=== PATIENT | female | born 1990 | race African-American/Black ===

== ENCOUNTER 2016-06-24 07:55 | Emergency (ER) | payer BC, OTHER ==
[2016-06-24 08:16] LABS: Blood, Urine Moderate (Negative); Glucose, Urine (Dipstick) Negative (Negative); Ketone, Urine Negative (Negative); Nitrite Negative (Negative); Protein, Urine (Dipstick) Negative (Neg-Trace); Urobilinogen 0.2 mg/dL (0.2-1.0)
[2016-06-24 08:22] LABS: Bilirubin Negative (Negative)
[2016-06-24 08:25] LABS: Bacteria/HPF 1+ HPF (None Seen); WBC/HPF 0-3 HPF (0-3)
[2016-06-24 08:57] LABS: Sexual Assault Suspected No; Wet Prep Budding Yeast BudYeas/Hyph Absent (None Seen); Wet Prep Clue Cells Clue Cells Absent (None Seen); Wet Prep Source Vaginal; Wet Prep Spermatozoa Spermatozoa Absent (None Seen); Wet Prep Spermatozoa 2nd Revie Agree with result (None Seen)
[2016-06-24] MEDS ORDERED: cefTRIAXone\\ROCEPHIN 250 MG VIAL ONE (09:09)
[2016-06-24] MEDS ORDERED: Lidocaine 1% PF 5 ML VIAL ONE (09:09)
[2016-06-24] MEDS ORDERED: Azithromycin 250 MG TAB ONE (09:09)
--- NOTE | 2016-06-24 09:44 | ERRECORD ---
[facility] EMERGENCY RECORD HPI VAGINAL DISCHARGE (08:29 MPUR) CHIEF COMPLAINT: Patient presents for evaluation of vaginal discharge, Patient presents for evaluation of vaginal itching. HISTORIAN: History provided by patient, 2 day hx of discharge, burning, and irritation. Used Monistat last night but sx continue. No frequency. Is on control. LOCATION: Symptoms are localized, most severe in the vagina. TIME COURSE: Gradual onset of symptoms, There has been no change in the patient's symptoms over time. ASSOCIATED WITH: No associated symptoms. EXACERBATED BY: Patient's condition exacerbated by nothing. RELIEVED BY: Patient's condition relieved by nothing. ROS (08:32 MPUR) CONSTITUTIONAL: Historian denies fever. EYES: Historian denies eye pain. ENT: Historian denies rhinorrhea. CARDIOVASCULAR: Historian denies chest pain. RESPIRATORY: Historian denies cough. GI: Historian denies diarrhea, Historian denies vomiting. MUSCULOSKELETAL: Historian denies arthralgias. SKIN: Historian denies rash. NEUROLOGIC: Historian denies seizures. ENDOCRINE: Historian denies skin changes. HEMO/LYMPHATIC: Historian denies easy bruising. PAST MEDICAL HISTORY (08:02 EPIE) MEDICAL HISTORY: No past medical history. No past medical history, Flu vaccine not up to date, Tetanus not up to date, Pneumococcal vaccine not up to date. FEMALE SURGICAL HISTORY: Patient has no surgical history. PSYCHIATRIC HISTORY: Psychiatric history includes, anxiety. SOCIAL HISTORY: Patient drinks socially, rarely, , Patient denies drug use, Patient has no smoking history. KNOWN ALLERGIES No Known Drug Allergies CURRENT MEDICATIONS (08:01 EPIE) None VITAL SIGNS VITAL SIGNS: BP: 122/75, Pulse: 94, Resp: 18 (Non-Labored), Temp: 97.0 (Oral), Pain: 6, O2 sat: 97 on Room Air, Time: 06/24/2016 07:59. (07:59 EPIE) BP: 109/73, Pulse: 89, Resp: 18, Temp: 97.4 ORAL, Pain: 5, O2 sat: 98 on &a-1R&a+25V*p+0X*q9169G*c202B*c15G*c2P*p-0X&a-25V&a+1R Name: Joe Lacy : 1990 F25 MedRec: [id number] AcctNum: [id number] Prepared: ThuJun 24, 2016 18:40 by Interface Page 1 of 3 pMD [facility] EMERGENCY RECORD ra, Time: 06/24/2016 09:34. (09:34 EPIE) PHYSICAL EXAM CONSTITUTIONAL: Vital signs reviewed, Patient appears non toxic. (08:32 MPUR) HEAD: Head exam included findings of head atraumatic, normocephalic. (08:32 MPUR) EYES: Eye exam included findings of eyelids normal to inspection, Conjunctiva normal, Sclera normal. (08:32 MPUR) ENT: Nose exam normal, no nasal deformity, mucous membranes moist. (08:32 MPUR) NECK: Neck exam included findings of normal range of motion, no ecchymosis. (08:32 MPUR) RESPIRATORY CHEST: Respiratory exam included findings of no respiratory distress, NL Respiratory rate and no increased work of breathing. (08:32 MPUR) ABDOMEN FEMALE: Abdominal exam included findings of abdomen nontender, no distension, Mass palpated, no pulsatile masses, no peritoneal signs, slight suprapubic tenderness. (08:33 MPUR) GENITOURINARY FEMALE: Genitourinary exam included findings of external genitalia abnormal, inflamed, no ulcers noted., vaginal mucosa abnormal, mild inflammation. (09:03 MPUR) PELVIC: Speculum exam abnormal, bloody discharge present, Bimanual exam normal, Urethral exam normal, Bladder exam normal, Escorted by Chloe Mae. (09:08 MPUR) LOWER EXTREMITY: Lower extremity exam included findings of inspection normal, no cyanosis. (08:32 MPUR) NEURO: Speech normal, alert. (08:32 MPUR) SKIN: dry, and normal in color, no rash. (08:32 MPUR) PSYCHIATRIC: Normal affect, Recent memory normal. (08:32 MPUR) MEDICATION ADMINISTRATION SUMMARY Drug Name: azithromycin oral, Dose Ordered: 1000 mg, Route: Oral, Status: Given, Time: 09:18 06/24/2016, Drug Name: cefTRIAXone injection, Dose Ordered: 250 mg, Route: Intramuscular, Status: Given, Time: 09:16 06/24/2016, Detailed record available in Medication Service section. DOCTOR NOTES TEXT: Pt. would like treatment now., I have reviewed and agree with nurse's past medical, family, and social history as documented on chart. Pt's vital signs have been reviewed. (08:32 MPUR) initial labs neg. Discussed with pt awaiting for further results but she wanted tx now. (18:36 MPUR) &a-1R&a+25V*p+0X*m2181S*c202B*c15G*c2P*p-0X&a-25V&a+1R Name: Joe Lacy : 1990 F25 MedRec: [id number] AcctNum: [id number] Prepared: ThuJun 24, 2016 18:40 by Interface Page 2 of 3 pMD [facility] EMERGENCY RECORD PROBLEM LIST No recorded problems DIAGNOSIS (09:13 MPUR) FINAL: PRIMARY: Acute vaginitis. PRESCRIPTION No recorded prescriptions DISPOSITION PATIENT: Disposition Type: Discharge, Disposition: *Discharge Home. (09:13 MPUR) Patient left the department. (09:37 EPIE) Rios: EPIE=GARDENIA Mae, Yumiko MPUR=MD Meghana, Festus &a-1R&a+25V*p+0X*l6790L*c202B*c15G*c2P*p-0X&a-25V&a+1R Name: Joe Lacy : 1990 F25 MedRec: [id number] AcctNum: [id number] Prepared: ThuJun 24, 2016 18:40 by Interface Page 3 of 3 pMD MTDD
--- NOTE | 2016-06-24 09:50 | PICIS ---
[facility] EMERGENCY RECORD TRIAGE (ThuJun 24, 2016 08:01 EPIE) TRIAGE NOTES: Pt states that vaginal pain starting this morning. Reports irritable discharge. Pt Took monostat and reports itching and burn this morning. Pt reports dull/minor suprapubic pain. (ThuJun 24, 2016 08:01 EPIE) PATIENT: NAME: Joe Lacy, AGE: 25, GENDER: female, : Thu1990, TIME OF GREET: ThuJun 24, 2016 07:55, PREFERRED LANGUAGE: Malay, ETHNICITY: Not or , ECODE BILLING MAP: [facility], SSN: [id number], Zip Code: [address], KG WEIGHT: 49.90, PHONE: , , , PERSON ID: [id number], PCP: Sheila HENAO MARK. (ThuJun 24, 2016 08:01 EPIE) COMPLAINT: VAGINAL PAIN/ABD PAIN. (ThuJun 24, 2016 08:01 EPIE) ADMISSION: URGENCY: 3 Urgent, ADMISSION SOURCE: Home, TRANSPORT: CAR, BED: TRIAGE. (ThuJun 24, 2016 08:01 EPIE) TRIAGE SCREENING: Patient denies suicidal ideation, Patient denies presence of domestic violence. (08:02 EPIE) TREATMENTS IN PROGRESS: Treatments given Prehospital: none. (08:02 EPIE) PROVIDERS: TRIAGE NURSE: Yumiko Mae RN. (ThuJun 24, 2016 08:01 EPIE) VITAL SIGNS: BP 122/75, Pulse 94, Resp 18, (Non-Labored), Temp 97.0, (Oral), Pain 6, O2 Sat 97, on Room Air, Time 06/24/2016 07:59. (07:59 EPIE) PREVIOUS VISIT ALLERGIES: No Known Drug Allergies. (ThuJun 24, 2016 08:01 EPIE) No Known Drug Allergies. (08:02 EPIE) KNOWN ALLERGIES No Known Drug Allergies CURRENT MEDICATIONS (08: EPIE) None VITAL SIGNS VITAL SIGNS: BP: 122/75, Pulse: 94, Resp: 18 (Non-Labored), Temp: 97.0 (Oral), Pain: 6, O2 sat: 97 on Room Air, Time: 06/24/2016 07:59. (07:59 EPIE) BP: 109/73, Pulse: 89, Resp: 18, Temp: 97.4 ORAL, Pain: 5, O2 sat: 98 on ra, Time: 06/24/2016 09:34. (09:34 EPIE) NURSING ASSESSMENT: ABDOMEN (08:17 EPIE) CONSTITUTIONAL: Patient arrives ambulatory, Gait steady, History obtained from patient, Patient appears, anxious, Patient cooperative, Patient alert, Oriented to person, place and time, Skin warm, Skin dry, Skin normal in color, Mucous membranes pink, Mucous membranes moist, Patient is well-groomed, Pt states that vaginal pain starting this morning. Reports irritable discharge. Pt Took monostat and reports itching and burn this morning. Pt reports dull/minor suprapubic pain. &a-1R&a+25V*p+0X*g1155F*c202B*c15G*c2P*p-0X&a-25V&a+1R Name: Joe Lacy : 1990 F25 MedRec: [id number] AcctNum: [id number] Prepared: ThuJun 24, 2016 18:46 by Interface Page 1 of 8 pMD [facility] EMERGENCY RECORD PAIN: burning pain, itching pain, diffuse vaginal area, Onset of pain 06/24/2016, on a scale 0-10 patient rates pain as 6, Pain exacerbated by nothing. ABDOMEN: Abdomen assessment findings include abdomen symmetrical, Abdomen soft, no associated nausea, no associated vomiting, no associated diarrhea. LMP: First day last menstrual period, Last period started on 04/24/2016, Milestones: Pt reports always having irregular periods. GENITOURINARY FEMALE: Associated with vaginal discharge, small amount, bloody discharge, Pt reports consistency inbetween thick and thin. States the smell isn't bad but different. States she originally thought it was her period because it was brown then red. NURSING PROCEDURE: DISCHARGE NOTE (09:34 EPIE) DISCHARGE: Patient discharged to home, ambulating without assistance, driving self, unaccompanied, Summary of Care printed/ provided, Discharge instructions given to patient, Simple or moderate discharge teaching performed, Above person(s) verbalized understanding of discharge instructions and follow-up care. BELONGINGS: Belongings and valuables with patient upon arrival to the Emergency Department include:, Belongings and valuables with patient at time of discharge include:, Belongings remain with patient, Valuables remain with patient. VITAL SIGNS: BP: 109, / 73, Pulse: 89, Resp: 18, Temp: 97.4 ORAL, Pain: 5, O2 sat: 98, on: ra. NURSING PROCEDURE: NURSE NOTES NURSES NOTES: Notes: Patient resting with RR even and unlabored. No new complaints at this time. Warm blanket given for comfort. Awaiting urine results and ERMD to assess patient. (08:23 EPIE) Patient examined by physician. (08:25 EPIE) NURSING PROCEDURE: PELVIC EXAM (08:40 EPIE) PATIENT IDENTIFIER: Patient actively involved in identification process, Patient's identity verified by patient stating name, Patient's identity verified by hospital ID bracelet. PELVIC EXAM: Pelvic exam indicated for pelvic pain, Pelvic exam indicated for vaginal discharge, Pelvic exam performed by Dr. Meghana JIMENEZ, Pelvic exam assisted by Yumiko VARNER, Exam findings include, moderate amount, of white vaginal discharge, Meghana JIMENEZ used bucio swabs to remove the white monostat cream in the vagina, Exam findings include bleeding, small amount, GC/Chlamydia cultures obtained, labeled in the presence of the patient and sent to lab, Specimen for potassium hydroxide prep collected, labeled in the presence of the patient and sent to lab, Specimen for wet prep collected, labeled in the presence of the patient and sent to lab. &a-1R&a+25V*p+0X*p7437U*c202B*c15G*c2P*p-0X&a-25V&a+1R Name: Joe Lacy : 1990 F25 MedRec: [id number] AcctNum: [id number] Prepared: ThuJun 24, 2016 18:46 by Interface Page 2 of 8 pMD [facility] EMERGENCY RECORD FOLLOW-UP: Notes: Pt given feminine pad for comfort after exam. NURSING PROCEDURE: URINE COLLECTION (08:12 EPIE) PATIENT IDENTIFIER: Patient actively involved in identification process, Patient's identity verified by patient stating name, Patient's identity verified by hospital ID bracelet. URINE COLLECTION FEMALE: Urine collected by void, output amount (mL) 20, urine yellow in color, and cloudy, Specimen labeled in the presence of the patient and sent to lab. ORDER DETAILS Order Name: GC/Chlamydia Profile by PCR, Status: Active, Time: 08:48 06/24/2016, User: MELL, - Ordered for: MD Kowalski Marcus, - Entered by: MD Kowalski Marcus - Tue Jun 24, 2016 08:48, - Quantity: 1, Order Name: Test, Urine (BHCG), Status: Active, Time: 08:04 06/24/2016, User: VALARIE, - Ordered for: MD Kowalski Marcus, - Entered by: GARDENIA Mae, Yumiko Fitzpatrick Jun 24, 2016 08:04, - Quantity: 1, Order Name: Urinalysis with Microscopic, Status: Active, Time: 08:04 06/24/2016, User: VALARIE, - Ordered for: MD Kowalski Marcus, - Entered by: GARDENIA Mae Emily - Tue Jun 24, 2016 08:04, - Quantity: 1, Order Name: VP3, Status: Active, Time: 08:48 06/24/2016, User: MELL, - Ordered for: MD Kowalski Marcus, - Entered by: MD Kowalski Marcus - Tue Jun 24, 2016 08:48, - Quantity: 1, Order Name: Wet Prep, Status: Active, Time: 08:49 06/24/2016, User: MELL, - Ordered for: MD Kowalski Marcus, - Entered by: MD Kowalski Marcus - Tue Jun 24, 2016 08:49, - Quantity: 1. MEDICATION ADMINISTRATION SUMMARY Drug Name: azithromycin oral, Dose Ordered: 1000 mg, Route: Oral, Status: Given, Time: 09:18 06/24/2016, Drug Name: cefTRIAXone injection, Dose Ordered: 250 mg, Route: Intramuscular, Status: Given, Time: 09:16 06/24/2016, Detailed record available in Medication Service section. MEDICATION SERVICE azithromycin oral: Order: azithromycin oral (azithromycin) - Dose: 1000 mg : Oral Ordered by: Festus Kowalski MD &a-1R&a+25V*p+0X*p7960D*c202B*c15G*c2P*p-0X&a-25V&a+1R Name: Joe Lacy : 1990 F25 MedRec: [id number] AcctNum: [id number] Prepared: ThuJun 24, 2016 18:46 by Interface Page 3 of 8 pMD [facility] EMERGENCY RECORD Entered by: Festus Kowalski MD ThuJun 24, 2016 09:12 , Acknowledged by: Yumiko Mae RN ThuJun 24, 2016 09:14 Documented as given by: Yumiko Mae RN ThuJun 24, 2016 09:18 Patient, Medication, Dose, Route and Time verified prior to administration. Amount given: 1000mg, Site: Medication administered P.O., Correct patient, time, route, dose and medication confirmed prior to administration, Patient advised of actions and side-effects prior to administration, Allergies confirmed and medications reviewed prior to administration. cefTRIAXone injection: Order: cefTRIAXone injection (ceftriaxone sodium) - Dose: 250 mg : Intramuscular Ordered by: Festus Kowalski MD Entered by: Festus Kowalski MD ThuJun 24, 2016 09:12 , Acknowledged by: Yumiko Mae RN ThuJun 24, 2016 09:14 Documented as given by: Yumiko Mae RN ThuJun 24, 2016 09:16 Patient, Medication, Dose, Route and Time verified prior to administration. IM antibiotic, Amount given: 250mg, Medication administered to right thigh, Correct patient, time, route, dose and medication confirmed prior to administration, Patient advised of actions and side-effects prior to administration, Allergies confirmed and medications reviewed prior to administration. : Follow Up : Response assessment performed, No signs or symptoms of allergic reaction noted, Site inspection shows, No swelling at administration site, No drainage at administration site, No bleeding at site, No bruising noted at site, Dressing applied. (09:35 EPIE) HPI VAGINAL DISCHARGE (08:29 MPUR) CHIEF COMPLAINT: Patient presents for evaluation of vaginal discharge, Patient presents for evaluation of vaginal itching. HISTORIAN: History provided by patient, 2 day hx of discharge, burning, and irritation. Used Monistat last night but sx continue. No frequency. Is on control. LOCATION: Symptoms are localized, most severe in the vagina. TIME COURSE: Gradual onset of symptoms, There has been no change in the patient's symptoms over time. ASSOCIATED WITH: No associated symptoms. EXACERBATED BY: Patient's condition exacerbated by nothing. RELIEVED BY: Patient's condition relieved by nothing. ROS (08:32 MPUR) CONSTITUTIONAL: Historian denies fever. EYES: Historian denies eye pain. ENT: Historian denies rhinorrhea. CARDIOVASCULAR: Historian denies chest pain. RESPIRATORY: Historian denies cough. GI: Historian denies diarrhea, Historian denies &a-1R&a+25V*p+0X*d4777G*c202B*c15G*c2P*p-0X&a-25V&a+1R Name: Joe Lacy : 1990 F25 MedRec: [id number] AcctNum: [id number] Prepared: Amari Jun 24, 2016 18:46 by Interface Page 4 of 8 pMD [facility] EMERGENCY RECORD vomiting. MUSCULOSKELETAL: Historian denies arthralgias. SKIN: Historian denies rash. NEUROLOGIC: Historian denies seizures. ENDOCRINE: Historian denies skin changes. HEMO/LYMPHATIC: Historian denies easy bruising. PAST MEDICAL HISTORY (08:02 EPIE) MEDICAL HISTORY: No past medical history. No past medical history, Flu vaccine not up to date, Tetanus not up to date, Pneumococcal vaccine not up to date. FEMALE SURGICAL HISTORY: Patient has no surgical history. PSYCHIATRIC HISTORY: Psychiatric history includes, anxiety. SOCIAL HISTORY: Patient drinks socially, rarely, , Patient denies drug use, Patient has no smoking history. PHYSICAL EXAM CONSTITUTIONAL: Vital signs reviewed, Patient appears non toxic. (08:32 MPUR) HEAD: Head exam included findings of head atraumatic, normocephalic. (08:32 MPUR) EYES: Eye exam included findings of eyelids normal to inspection, Conjunctiva normal, Sclera normal. (08:32 MPUR) ENT: Nose exam normal, no nasal deformity, mucous membranes moist. (08:32 MPUR) NECK: Neck exam included findings of normal range of motion, no ecchymosis. (08:32 MPUR) RESPIRATORY CHEST: Respiratory exam included findings of no respiratory distress, NL Respiratory rate and no increased work of breathing. (08:32 MPUR) ABDOMEN FEMALE: Abdominal exam included findings of abdomen nontender, no distension, Mass palpated, no pulsatile masses, no peritoneal signs, slight suprapubic tenderness. (08:33 MPUR) GENITOURINARY FEMALE: Genitourinary exam included findings of external genitalia abnormal, inflamed, no ulcers noted., vaginal mucosa abnormal, mild inflammation. (09:03 MPUR) PELVIC: Speculum exam abnormal, bloody discharge present, Bimanual exam normal, Urethral exam normal, Bladder exam normal, Escorted by Chloe Mae. (09:08 MPUR) LOWER EXTREMITY: Lower extremity exam included findings of inspection normal, no cyanosis. (08:32 MPUR) NEURO: Speech normal, alert. (08:32 MPUR) SKIN: dry, and normal in color, no rash. (08:32 MPUR) PSYCHIATRIC: Normal affect, Recent memory normal. (08:32 MPUR) &a-1R&a+25V*p+0X*s9408G*c202B*c15G*c2P*p-0X&a-25V&a+1R Name: Joe Lacy : 1990 F25 MedRec: [id number] AcctNum: [id number] Prepared: ThuJun 24, 2016 18:46 by Interface Page 5 of 8 pMD [facility] EMERGENCY RECORD LAB INTERPRETATION (08:32 MPUR) INTERPRETATION: No significant lab abnormalities except as noted above. EVENTS TRANSFER: Triage to Emergency Triage. (ThuJun 24, 2016 08:01 EPIE) Emergency Triage to Emergency Room -05. (08:02 EPIE) Removed from Emergency Emergency Room -05. (09:37 EPIE) DOCTOR NOTES TEXT: Pt. would like treatment now., I have reviewed and agree with nurse's past medical, family, and social history as documented on chart. Pt's vital signs have been reviewed. (08:32 MPUR) initial labs neg. Discussed with pt awaiting for further results but she wanted tx now. (18:36 MPUR) PROBLEM LIST No recorded problems DIAGNOSIS (09:13 MPUR) FINAL: PRIMARY: Acute vaginitis. DISPOSITION PATIENT: Disposition Type: Discharge, Disposition: *Discharge Home. (09:13 MPUR) Patient left the department. (09:37 EPIE) INSTRUCTION (09:15 MPUR) FOLLOWUP: Doreen HENAO., DON, [address], [facility] [place] [address], [phone]. SPECIAL: Check on culture results in 72 hours. Follow-up with your primary physician as needed. PRESCRIPTION No recorded prescriptions IMAGING *DISCHARGE INSTRUCTIONS RECEIPT: Image captured from scanner. (09:36 EPIE) *SUPPLY CHARGE SHEET: Image captured from scanner. (09:37 EPIE) ADMIN (18:37 MPUR) DIGITAL SIGNATURE: MD Kowalski Marcus. RESULTS LABORATORY: Urinalysis with Microscopic Collection DT: ThuJun 24, 2016 08:17, Color Yellow , Range (Yellow), &a-1R&a+25V*p+0X*r2409Y*c202B*c15G*c2P*p-0X&a-25V&a+1R Name: Joe Lacy : 1990 F25 MedRec: [id number] AcctNum: [id number] Prepared: ThuJun 24, 2016 18:46 by Interface Page 6 of 8 pMD [facility] EMERGENCY RECORD Clarity Slightly Cloudy , Range (Clear), Specific [place], Urine 1.032 , Range (1.002-1.036), pH, Urine 5.5 , Range (5.0-9.0), *Leukocyte Trace - H , Range (Negative), Nitrite Negative , Range (Negative), Protein, Urine (Dipstick) Negative mg/dL, Range (Neg-Trace), Glucose, Urine (Dipstick) Negative mg/dL, Range (Negative), Ketone, Urine Negative mg/dL, Range (Negative), Urobilinogen 0.2 mg/dL, Range (0.2-1.0), Bilirubin Negative , Range (Negative), , *Blood, Urine Moderate - H , Range (Negative). (08:28 MPUR) Urinalysis with Microscopic Collection DT: ThuJun 24, 2016 08:17, Color Yellow , Range (Yellow), Clarity Slightly Cloudy , Range (Clear), Specific [place], Urine 1.032 , Range (1.002-1.036), pH, Urine 5.5 , Range (5.0-9.0), *Leukocyte Trace - H , Range (Negative), Nitrite Negative , Range (Negative), Protein, Urine (Dipstick) Negative mg/dL, Range (Neg-Trace), Glucose, Urine (Dipstick) Negative mg/dL, Range (Negative), Ketone, Urine Negative mg/dL, Range (Negative), Urobilinogen 0.2 mg/dL, Range (0.2-1.0), Bilirubin Negative , Range (Negative), , *Blood, Urine Moderate - H , Range (Negative), RBC/HPF 4-6 HPF, Range (0-3), WBC/HPF 0-3 HPF, Range (0-3), *Squamous Epithelial 11-20 - H HPF, Range (0-3), *Bacteria/HPF 1+ - H HPF, Range (None Seen). (08:34 MPUR) Test, Urine (BHCG) Collection DT: ThuJun 24, 2016 08:17, Test - Urine (BHCG) NEGATIVE , Range (NEGATIVE), Method of sensitivity- Indeterminant: results should be repeated, after 48 hours. Positive: results may be detected as early as 4-5 days before a first missed menses. Elimination of BHCG-, Elimination following first trimester D&C: 29-44 Days , Elimination following term : 8-24 Days , Specific [place] 1.032 , Range (1.002-1.036), A dilute urine specimen may, not contain loss control representative levels of hCG. If is still, suspected, a first morning urine specimen OR a random blood specimen should, be obtained from the patient 48-72 hours later and re-tested. , . (08:34 MPUR) Wet Prep Collection DT: ThuJun 24, 2016 08:55, &a-1R&a+25V*p+0X*n9736N*c202B*c15G*c2P*p-0X&a-25V&a+1R Name: Joe Lacy : 1990 F25 MedRec: [id number] AcctNum: [id number] Prepared: Tue Jun 24, 2016 18:46 by Interface Page 7 of 8 pMD [facility] EMERGENCY RECORD Wet Prep Trichomonas Trichomonas Absent , Range (None Seen), Wet Prep Clue Cells Clue Cells Absent , Range (None Seen), Wet Prep Budding Yeast BudYeas/Hyph Absent , Range (None Seen), Wet Prep Spermatozoa Spermatozoa Absent , Range (None Seen), Wet Prep Pathologist Review Spermatozoa Absent , Range (None Seen), Wet Prep Source Vaginal , Sexual Assault Suspected No . (09:03 MPUR) Rios: EPIRosita=GARDENIA Mae, Yumiko MPUR=MD Meghana, Festus &a-1R&a+25V*p+0X*k9001L*c202B*c15G*c2P*p-0X&a-25V&a+1R Name: Joe Lacy : 1990 F25 MedRec: [id number] AcctNum: [id number] Prepared: Amari Jun 24, 2016 18:46 by Interface Page 8 of 8 pMD MTDD
== END 2016-06-24 09:34 | disposition home or self-care (01) ==
LOC: NAV ERS 07:55
DX: N76.0 Acute vaginitis (principal); F41.9 Anxiety disorder, unspecified
CPT/HCPCS: 81001; 81025; 87210; 87480; 87491; 87510; 87591; 87661; 96372; J0696; J2001

== ENCOUNTER 2017-04-05 02:30 | Emergency (ER) | payer OTHER, SELFPAY ==
[2017-04-05] MEDS ORDERED: Lorazepam 2 MG/ML VIAL ONE (03:14)
== END 2017-04-05 03:08 | disposition left against medical advice (07) ==
LOC: NAV ERS 02:30
DX: F41.0 Panic disorder [episodic paroxysmal anxiety] (principal)
CPT/HCPCS: 96374; J2060

== ENCOUNTER 2018-03-05 10:27 | Emergency (ER) | payer SELFPAY ==
[2018-03-05] MEDS ORDERED: Lorazepam 2 MG/ML VIAL ONE ×2 (10:46→11:14)
[2018-03-05] MEDS ORDERED: Ondansetron ODT 4 MG TAB ONE (11:11)
== END 2018-03-05 11:50 | disposition home or self-care (01) ==
LOC: NAV ERS 10:27
DX: F41.9 Anxiety disorder, unspecified (principal)
CPT/HCPCS: 93005; 94760; 96372; J2060; Q0162

== ENCOUNTER 2018-12-15 09:40 | Emergency (ER) | payer BC, SELFPAY | END 2018-12-15 10:30 | disposition home or self-care (01) | LOC: NAV ERS 09:40 | DX: Z04.1 Encounter for examination and observation following transport accident (principal); F41.9 Anxiety disorder, unspecified; Z79.899 Other long term (current) drug therapy; V49.9XXA Car occupant (driver) (passenger) injured in unspecified traffic accident, initial encounter | CPT/HCPCS: 99283 ==

== ENCOUNTER 2019-04-03 22:42 | Emergency (ER) | payer BC ==
[2019-04-03] MEDS ORDERED: Lorazepam 2 MG/ML VIAL ONE (22:46)
[2019-04-03] MEDS ORDERED: Acetaminophen 500 MG TAB ONE (23:06)
== END 2019-04-03 23:38 | disposition home or self-care (01) ==
LOC: NAV ERS 22:42
DX: R55 Syncope and collapse (principal); F41.9 Anxiety disorder, unspecified; Z79.899 Other long term (current) drug therapy
CPT/HCPCS: 93005; 96372; J2060

== ENCOUNTER 2019-04-04 22:02 | Emergency (ER) | payer BC ==
[2019-04-04 22:35] LABS: #Basophils 0.1 thou/uL (0.0-0.2); #Eosinphils 0.1 thou/uL (0.0-0.7); #Lymphocytes 3.4 thou/uL (1.20-3.40); #Monocytes 0.4 thou/uL (0.11-0.59); #Neutrophils 2.9 thou/uL (1.40-6.50); %Eosinophils 2.1 % (0.0-10.0); %Lymphocytes 49.2 % (21.0-51.0); %Monocytes 6.3 % (0.0-10.0); %Neutrophils 41.4 % (42.0-75.0); Hemoglobin 13.6 g/dL (12.0-16.0); Mean Corpuscular HGB CONC 32.7 g/dL (32.0-36.0); Mean Corpuscular Hemoglobin 25.9 pg (27.0-31.0); Mean Corpuscular Volume 79.1 fL (78.0-98.0); Mean Platelet Volume 8.7 fL (7.4-10.4); Platelet Count 236 thou/uL (130-400); RBC Distribution Width 11.6 % (11.5-14.5); Red Blood Cell (RBC) Count 5.24 mill/uL (4.20-5.40); White Blood Cell (WBC) Count 6.9 thou/uL (4.8-10.8)
[2019-04-04 22:44] LABS: Bilirubin Negative (Negative); Blood, Urine Negative (Negative); Clarity Slightly Cloudy (Clear); Glucose, Urine (Dipstick) Negative (Negative); Leukocyte Negative (Negative); Nitrite Negative (Negative); Protein, Urine (Dipstick) Negative (Neg-Trace)
[2019-04-04 22:45] LABS: Pregnancy Test - Urine (BHCG) Negative (Negative); Pregu Control Background? CLEAR/WHITE (CLR/WHITE); Pregu Control Bar Appear? YES (CONTROL BAR); Specific Gravity 1.015 (1.002-1.036)
[2019-04-04 22:49] LABS: ALT (SGPT) 16 U/L (8-55); AST (SGOT) 18 U/L (5-34); Alcohol Less than 10 mg/dL (Less than 10); Alkaline Phosphatase 53 U/L (40-110); Anion Gap 14 mmol/L (10-20); BUN (Urea Nitrogen) 9 mg/dL (7.0-18.7); Bilirubin, Total 1.3 mg/dL (0.2-1.2); Calc. Creatinine Clearance 0 mL/min (70-130); Calcium 9.5 mg/dL (7.8-10.44); Carbon Dioxide 23 mmol/L (22-29); Chloride 106 mmol/L (98-107); Estimated GFR-MDRD Greater than 90; Globulin 2.9 g/dL (2.4-3.5); Glucose 81 mg/dL (70-105); Potassium 3.4 mmol/L (3.5-5.1); Protein, Total 6.9 g/dL (6.0-8.3); Sodium 140 mmol/L (136-145)
[2019-04-04 22:50] LABS: Acetaminophen Less than 6.0 mcg/mL (10.0-30.0); Alcohol Less than 10 mg/dL (Less than 10); Salicylate Less than 8.0 mg/dL (15.0-30.0)
[2019-04-04 22:52] LABS: Amphetamine Not Detected (NotDetected); Barbiturates Screen Not Detected (NotDetected); Benzodiazepine Screen Detected (NotDetected); Cocaine Metabolite Screen Not Detected (NotDetected); Medtox Control Line Valid? VALID (VALID); Methadone Not Detected (NotDetected); Methamphetamine Not Detected (NotDetected); Opiate Screen Not Detected (NotDetected); Oxycodone Screen Not Detected (NotDetected); Phencyclidine (PCP) Not Detected (NotDetected); THC/Cannabinoid Screen Not Detected (NotDetected); Tricyclic Screen Not Detected (NotDetected)
== END 2019-04-04 23:45 | disposition home or self-care (01) ==
LOC: NAV ERS 22:02
DX: R55 Syncope and collapse (principal); F41.9 Anxiety disorder, unspecified; Z79.899 Other long term (current) drug therapy
CPT/HCPCS: 80053; 80306; 80307; 81003; 81025; 84443; 85025; 85379; 93005; 94760

== ENCOUNTER 2020-01-15 14:19 | Emergency (ER) | payer BC ==
[~2020-01-15 14:19] MED LIST: Iopamidol 370 76% 100 ML VIAL ONE
[2020-01-15 15:10] LABS: #Basophils 0.1 thou/uL (0.0-0.2); #Lymphocytes 1.6 thou/uL (1.20-3.40); #Monocytes 0.7 thou/uL (0.11-0.59); #Neutrophils 2.9 thou/uL (1.40-6.50); %Basophils 1.8 % (0.0-1.0); %Eosinophils 0.8 % (0.0-10.0); %Monocytes 13.1 % (0.0-10.0); %Neutrophils 54.3 % (42.0-75.0); Hemoglobin 13.7 g/dL (12.0-16.0); Mean Corpuscular HGB CONC 31.7 g/dL (32.0-36.0); Mean Corpuscular Hemoglobin 25.9 pg (27.0-31.0); Mean Corpuscular Volume 81.9 fL (78.0-98.0); Mean Platelet Volume 9.9 fL (7.4-10.4); Platelet Count 217 thou/uL (130-400); RBC Distribution Width 11.4 % (11.5-14.5); Red Blood Cell (RBC) Count 5.29 mill/uL (4.20-5.40); White Blood Cell (WBC) Count 5.4 thou/uL (4.8-10.8)
[2020-01-15 15:18] LABS: ALT (SGPT) 14 U/L (8-55); AST (SGOT) 17 U/L (5-34); Alkaline Phosphatase 57 U/L (40-110); Anion Gap 14 mmol/L (10-20); BUN (Urea Nitrogen) 6 mg/dL (7.0-18.7); Calc. Creatinine Clearance 0 mL/min (70-130); Carbon Dioxide 25 mmol/L (22-29); Chloride 104 mmol/L (98-107); Estimated GFR-MDRD Greater than 90; Globulin 2.8 g/dL (2.4-3.5); Glucose 80 mg/dL (70-105); Potassium 3.6 mmol/L (3.5-5.1); Protein, Total 6.8 g/dL (6.0-8.3); Sodium 139 mmol/L (136-145)
[2020-01-15] MEDS ORDERED: Acetaminophen 500 MG TAB ONE (15:22)
--- NOTE | 2020-01-15 15:30 | CT ---
CTA Angio Chest W WO Con History: Chest pain Comparison: None. Findings: CT angiogram chest performed after the intravenous ministration of contrast. 3-D rendering provided. No proximal segmental pulmonary arterial filling defect. No pericardial effusion. Upper abdomen evaluation is unremarkable. Faint patchy opacity right lower lobe axial image 76. Remainder the lungs are clear. Impression: 1. No pulmonary embolism. 2. Single focus of patchy opacity right lower lobe axial image 76 suggesting early pneumonia. This op acity is likely radiographically occult, and follow-up CT the chest after treatment of acute symptoms is recommended.
== END 2020-01-15 16:15 | disposition home or self-care (01) ==
LOC: NAV ERS 14:19
DX: J18.9 Pneumonia, unspecified organism (principal); R00.0 Tachycardia, unspecified; F41.9 Anxiety disorder, unspecified; Z79.899 Other long term (current) drug therapy
CPT/HCPCS: 71275; 80053; 83880; 84484; 85025; 93005; 94760; Q9967

== ENCOUNTER 2023-01-17 12:11 | Emergency (ER) | payer BC, SELFPAY ==
[2023-01-17 12:57] LABS: #Basophils 0.1 thou/uL (0.0-0.2); #Lymphocytes 1.3 thou/uL (1.20-3.40); #Monocytes 0.5 thou/uL (0.11-0.59); #Neutrophils 9.6 thou/uL (1.40-6.50); %Basophils 0.6 % (0.0-1.0); %Eosinophils 0.2 % (0.0-10.0); %Lymphocytes 11.5 % (21.0-51.0); %Monocytes 4.3 % (0.0-10.0); %Neutrophils 83.4 % (42.0-75.0); Hemoglobin 12.5 g/dL (12.0-16.0); Mean Corpuscular HGB CONC 30.2 g/dL (32.0-36.0); Mean Corpuscular Hemoglobin 21.9 pg (27.0-31.0); Mean Corpuscular Volume 72.4 fl (78.0-98.0); Mean Platelet Volume 10.4 fL (7.4-10.4); Platelet Count 79 10x3/uL (130-400); RBC Distribution Width 14.4 % (11.5-14.5); Red Blood Cell (RBC) Count 5.71 mill/uL (4.20-5.40); White Blood Cell (WBC) Count 11.5 10x3/uL (4.8-10.8)
[2023-01-17] MEDS ORDERED: Morphine 4 MG/ML VIAL ONE (12:59)
[2023-01-17] MEDS ORDERED: Ondansetron PF 4 MG/2 ML Vial ONE (13:00)
[2023-01-17] MEDS ORDERED: Sodium Chloride 0.9% 1,000 ML ONE (13:00)
[2023-01-17 13:22] LABS: ALT (SGPT) 13 U/L (8-55); AST (SGOT) 26 U/L (5-34); Albumin 4.3 g/dL (3.5-5.0); Alkaline Phosphatase 57 U/L (40-110); Anion Gap 17 mmol/L (10-20); BUN (Urea Nitrogen) 9 mg/dL (7.0-18.7); Bilirubin, Total 0.6 mg/dL (0.2-1.2); Calc. Creatinine Clearance 0 mL/min (70-130); Calcium 9.4 mg/dL (7.8-10.44); Carbon Dioxide 16 mmol/L (22-29); Chloride 109 mmol/L (98-107); Estimated GFR 91; Globulin 3.8 g/dL (2.4-3.5); Glucose 79 mg/dL (70-105); Potassium 5.2 mmol/L (3.5-5.1); Protein, Total 8.1 g/dL (6.0-8.3); Sodium 137 mmol/L (136-145)
[2023-01-17 13:28] LABS: Bilirubin Negative (Negative); Blood, Urine Moderate (Negative); Clarity Clear (Clear); Glucose, Urine (Dipstick) Negative (Negative); Ketone, Urine Negative (Negative); Leukocyte Negative (Negative); Nitrite Negative (Negative); Protein, Urine (Dipstick) Negative (Neg-Trace); Specific Gravity, Urine 1.025 (1.005-1.030); Urobilinogen 0.2 mg/dL (Less than 2)
[2023-01-17 13:29] LABS: CAUTI Indications for Culture Pelvic or flank pain; Pregnancy Test - Urine (BHCG) Negative (Negative); Pregu Control Background? CLEAR/WHITE (CLR/WHITE); Pregu Control Bar Appear? YES (CONTROL BAR); Specific Gravity 1.025 (1.002-1.036)
[2023-01-17 13:32] LABS: Bacteria/HPF Rare-Few HPF (None Seen); Mucous/LPF 3+ LPF (<2+); Squamous Epithelial 0-3 HPF (0-3); WBC/HPF 0-3 HPF (0-3)
[2023-01-17 13:33] LABS: Urine Culture Reflex No No
== END 2023-01-17 15:00 | disposition home or self-care (01) ==
LOC: NAV ERS 12:11
DX: N13.2 Hydronephrosis with renal and ureteral calculous obstruction (principal)
CPT/HCPCS: 36415; 74176; 80053; 81001; 81025; 85025; 94760; 96361; 96374; 96375; J2270; J2405; J7050